=== PATIENT | male | born 1955 | race African-American/Black ===

== ENCOUNTER 2020-11-23 09:42 | Emergency (ER) | payer SELFPAY ==
[2020-11-23 10:22] VITALS: BP 149/79; PULSE 70; RESP 14; TEMP 36.6; O2SAT 100
--- NOTE | 2020-11-23 10:33 | PC.NURSE ---
[id number] attempted to triage; pt. went to bathroom
[2020-11-23 11:45] VITALS: BP 148/93; PULSE 73; RESP 18; TEMP 37.1; O2SAT 99
[2020-11-23 12:00] LABS: Add Urine Microscopic? YES; Appearance Urine Clear (Clear); Bilirubin Urine Negative (Negative); Blood Urine 3+ (Negative); Color Urine Yellow (Yellow); Glucose Urine UA Negative (Negative); Ketones Urine Trace mg/dL (Negative); Leukocyte Esterase Ur Negative LEU/UL (Negative); Mucus Urine Rare /lpf; Nitrate Urine Negative (Negative); Protein Urine Negative (Negative); RBC Urine 21-50 /hpf (0-2); Specific Grav Ur 1.018 (1.001-1.035); Squamous Epithelial Cell Urine Rare /hpf (Few); Urobilinogen Urine Negative mg/dL (<2.0)
--- NOTE | 2020-11-23 13:29 | ED.GENADULT ---
HPI - General Adult General Chief complaint: Unspecified Stated complaint: ruptured hernia? Time Seen by Provider: 11/23/20 11:53 History of Present Illness HPI narrative: Patient is a 65-year-old male who presents to the ER with lower abdominal pain and urinary incontinence. Reports 4 days ago he developed pain in his back and abdomen and then noticed that he had urinated on himself. He reports history of weak stream and nocturia. He has not been treated for this. No weight loss. Denies dysuria or fever. Does not taking medications and does not have a PCP/urologist. Patient reports left inguinal hernia has been present for years that is more difficult to reduce at this time but nontender and continues to remain soft. Related Data Allergies Allergy/AdvReac Type Severity Reaction Status Date / Time NA Allergy Uncoded 07/01/08 12:21 Review of Systems Review of Systems: All systems reviewed & are unremarkable except as noted in HPI and below Constitutional: Constitutional: Denies chills, Denies fever(s) and Denies weight loss Gastrointestinal: Gastrointestinal: Reports abdominal pain, Denies diarrhea, Denies nausea and Denies vomiting Genitourinary: Genitourinary: Denies dysuria, Reports flank pain, Reports nocturia, Reports urinary frequency, Reports urinary hesitancy and Reports urinary incontinence PMFSH Past Medical History Medical History (Updated 11/23/20 @ 15:08 by Kiet Wilcox MD) BPH (benign prostatic hyperplasia) Surgical History Surgical History (Updated 11/23/20 @ 13:34 by Kiet Wilcox MD) No pertinent past surgical history Social History Social History (Updated 11/23/20 @ 13:34 by Kiet Wilcox MD) Alcohol intake: current Alcohol use details: Drinks beer daily. Exam Narrative: GENERAL: Well-appearing, well-nourished, and in no acute distress. HEAD: Normocephalic, atraumatic. CHEST: Clear to auscultation. No respiratory distress. HEART: Regular rate and rhythm. Normal peripheral pulses. ABDOMEN: Soft, bladder distention of the lower abdomen palpable up to the umbilicus with tenderness. Left inguinal hernia that is reducible. EXTREMITIES: Normal range of motion. No edema. SKIN: Warm, dry, no rash. NEURO: Alert and oriented x3. PSYCH: Normal mood and affect. Course Course Emergency Course: Patient had 1700 mL of output after placement of Rao. Unfortunately Rao balloon damaged and catheter fell out. Discussed with urology and catheter will be replaced and he will follow up in clinic. Will start patient on Flomax. Vital Signs Vital signs: Vital Signs Temperature 97.8 F 11/23/20 10:22 Pulse Rate 70 11/23/20 10:22 Respiratory Rate 14 11/23/20 10:22 Blood Pressure 149/79 H 11/23/20 10:22 Pulse Oximetry 100 11/23/20 10:22 Temperature 98.7 F 11/23/20 11:45 Pulse Rate 73 11/23/20 11:45 Respiratory Rate 18 11/23/20 11:45 Blood Pressure 148/93 H 11/23/20 11:45 Pulse Oximetry 99 11/23/20 11:45 Medical Decision Making Vital Signs Vital Signs: Vital Signs Temperature 97.8 F 11/23/20 10:22 Pulse Rate 70 11/23/20 10:22 Respiratory Rate 14 11/23/20 10:22 Blood Pressure 149/79 H 11/23/20 10:22 Pulse Oximetry 100 11/23/20 10:22 Temperature 98.7 F 11/23/20 11:45 Pulse Rate 73 11/23/20 11:45 Respiratory Rate 18 11/23/20 11:45 Blood Pressure 148/93 H 11/23/20 11:45 Pulse Oximetry 99 11/23/20 11:45 Lab Data Result diagrams: 11/23/20 13:45 Labs: Lab Results 11/23/20 11/23/20 Range/Units 11:47 13:45 Sodium 140 (137-145) mmol/L Potassium 3.9 (3.4-5.0) mmol/L Chloride 104 (98-107) mmol/L Carbon Dioxide 27 (22-30) mmol/L Anion Gap 9 (8-16) mmol/L BUN 29 H (9-20) mg/dL Creatinine 1.10 (0.7-1.3) mg/dL Estim Creat Clear Calc 57 ml/min Estimated GFR > 60 (59 - ) Glucose 109 (65-110) mg/dL Calcium 9.9 (8.4-10.2) mg/dL Urine Color Yello
--- NOTE | 2020-11-23 13:46 | PC.NURSE ---
Urojet used for catheter placement.
--- NOTE | 2020-11-23 14:23 | PC.NURSE ---
Patient's catheter was unclamped and had another 600mL drain from bladder for a total of 1600mL. While filling coude balloon after insertion, there was leaking coming from sterile water insertion site. Patient did not report pain while filling balloon with 10cc. Catheter was then rechecked after a couple minutes and patient stated, it feels like it might have fallen out. Catheter was rechecked and was discontinued. Balloon appeared to have a leak and was not able to inflate.
[2020-11-23 14:24] LABS: Anion Gap 9 mmol/L (8-16); Blood Urea Nitrogen 29 mg/dL (9-20); Calcium 9.9 mg/dL (8.4-10.2); Carbon Dioxide 27 mmol/L (22-30); Chloride 104 mmol/L (98-107); Estimated CRCL calculation 57 ml/min; Estimated Glomerular Filt Rate > 60; Glucose 109 mg/dL (65-110); Potassium 3.9 mmol/L (3.4-5.0); Sodium 140 mmol/L (137-145)
--- NOTE | 2020-11-23 15:40 | PC.NURSE ---
Leg bag applied to patient.
[2020-11-23 15:42] VITALS: BP 136/78; PULSE 74; RESP 18; O2SAT 98
== END 2020-11-23 15:49 | disposition home or self-care (01) ==
PROVIDERS: Emergency Provider Emergency Medicine; PCP Otolaryngology
DX: R33.8 Other retention of urine (principal)
CPT/HCPCS: 36415; 51703; 80048; 81001; 87086; 99283